=== PATIENT | female | born 1970 | race Asian ===

== ENCOUNTER 2020-06-30 14:22 | Outpatient (CLI) | payer BC | END 2020-06-30 23:59 | disposition home or self-care (01) | LOC: CFH 14:22 | PROVIDERS: ATTEND Family Medicine | DX: Z12.31 Encounter for screening mammogram for malignant neoplasm of breast (principal); Z12.39 Encounter for other screening for malignant neoplasm of breast | CPT/HCPCS: 76641; 77063; 77067 ==